=== PATIENT | male | born 1960 ===

== ENCOUNTER 2017-02-01 10:19 | Emergency (ER) | payer MEDICAID ==
[2017-02-01 10:32] VITALS: BMI 29.2
[2017-02-01] MEDS ORDERED: Oxycodone/Acetaminophen 5/325 mg Tab PO STA (10:32)
[2017-02-01] MEDS ORDERED: Oxycodone/Acetaminophen 5/325 mg Tab ONE (10:36)
--- NOTE | 2017-02-01 10:39 | C.PDOC ---
History Of Present Illness 56 y/o male on dialysis brought to ED by EMS with complaints of back pain for 3 days. Patient reports he was at dialysis today and developed pain prompting visit to ED. Patient states he was seen at [facility] for same symptoms and was given Tylenol with no relief. Patient denies fever, chills, n/v/d, urinary symptoms or any other complaints at this time. Time Seen by Provider: 02/01/17 10:22 Chief Complaint (Nursing): Back Pain History Per: Patient History/Exam Limitations: no limitations Onset/Duration Of Symptoms: Days Current Symptoms Are (Timing): Still Present Quality Of Discomfort: "Pain" Past Medical History Reviewed: Historical Data, Nursing Documentation, Vital Signs Vital Signs: Last Vital Signs Temp 97.7 F 02/01/17 13:45 Pulse 69 02/01/17 13:45 Resp 16 02/01/17 13:45 BP 156/77 H 02/01/17 13:45 Pulse Ox 100 02/01/17 13:48 - Medical History PMH: HTN, Hypercholesterolemia, End Stage Renal Disease, Chronic Kidney Disease Surgical History: No Surg Hx - [facility] Procedures CATARAC PHACOEMULS/ASPIR (07/23/13) INSERT LENS AT CATAR EXT (07/23/13) PERFORMANCE OF URINARY FILTRATION, MULTIPLE (09/07/15) Family History: States: No Known Family Hx - Social History Hx Alcohol Use: No Hx Substance Use: No Review Of Systems Constitutional: Negative for: Fever Gastrointestinal: Negative for: Nausea, Vomiting, Abdominal Pain, Diarrhea Genitourinary: Negative for: Dysuria, Hematuria Musculoskeletal: Positive for: Back Pain Skin: Negative for: Rash Neurological: Negative for: Weakness, Numbness Physical Exam - Physical Exam Appears: Non-toxic, No Acute Distress Skin: Normal Color, Warm, Dry, No Rash Head: Atraumatic, Normacephalic Eye(s): bilateral: Normal Inspection Oral Mucosa: Moist Neck: Normal ROM, No Midline Cervical Tenderness, Supple Chest: Symmetrical Gastrointestinal/Abdominal: Soft, No Tenderness, No Guarding, No Rebound Back: No CVA Tenderness, No Decreased ROM, Straight Leg Raising (Positive on both sides), Other (right paralumbar tenderness) Extremity: No Calf Tenderness, Capillary Refill (<2 seconds), Other (right upper arm fistula, 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 No suspicious lytic or blastic bony changes are identified although advanced degenerate disc changes identified at L4-5 and L5-S1 manifest by disc height loss, endplate sclerosis and osteophyte development. No spondylolisthesis appreciated. Posterior elements are remarkable for facet arthropathy diffusely. Prevertebral paraspinal soft tissues reflect iliac vascular calcifications. DISCS/SPINAL CANAL/NEURAL FORAMINA: L1-2: A disc osteophyte complex is appreciated as well as mild facet arthropathy resulting in a borderline central canal and borderline bilateral neural foraminal stenoses but no definite disc herniation grossly evident. L2-3: A generalized disc bulge results in mild central canal stenosis with contribution from facet joint arthropathy bilaterally. Mild bilateral neural foraminal stenosis is encountered. L3-4: An additional mild degenerative central canal stenosis results from generalized disc bulging and moderate facet joint arthropathy bilaterally. Mild bilateral neural foraminal stenosis also noted. L4-5: A moderate degenerate central canal stenosis results from prominent disc osteophyte complex and moderate facet arthropathy with [id number] bilateral degenerative neural foraminal stenoses also identified. L5-S1: A mild but irregular disc osteophyte complex is appreciate slightly greater the left and right sides combined with moderate to severe facet arthropathy encroaching the left greater the right lateral recess with moderate bilateral neural foraminal stenosis appreciated. PARASPINAL SOFT TISSUES: Unremarkable. OTHER FINDINGS: No gross disc acute herniation appreciate throughout the exam however MRI is more sensitive. IMPRESSION: 1. A mild L1 compression fractures of indeterminate age but is not fragmented. 2. Multilevel degenerative central canal and neural foraminal stenoses are identified seen worst at L4-5 where moderate central canal stenosis and [id number] bilateral neural foraminal stenoses are identified. 3. Stable but straightened lumbar curvature. Progress Note: Treated with morphine 4 mg IM. On re-evaluation abdomen soft, feeling better. ambulating with cane Reassessment Condition: Improved Medical Decision Making Medical Decision Making: Plan: * LS spine XRAY * Oxycodone Disposition Counseled Patient/Family Regarding: Studies Performed, Diagnosis, Need For Followup, Rx Given - Disposition Referrals: Jayesh Mariscal MD [Staff Provider] - Disposition: HOME/ ROUTINE Disposition Time: 14:00 Condition: STABLE Prescriptions: oxyCODONE/Acetaminophen [Percocet 5/325 mg Tab] 1 tab PO QID PRN #10 tab PRN Reason: Pain Instructions: Vertebral Compression Fracture (ED), Back Pain (ED) Forms: [employer] (Dive[employer]) Print Language: WELSH - POA Present On Arrival: None - Clinical Impression Clinical Impression: Lumbar sprain, Compression fracture of first lumbar vertebra - PA / FNP / Resident Statement MD/DO has reviewed & agrees with the documentation as recorded. - Scribe Statement The provider has reviewed the documentation as recorded by the Ross Hester All medical record entries made by the Anitaibabhishek were at my direction and personally dictated by me. I have reviewed the chart and agree that the record accurately reflects my personal performance of the history, physical exam, medical decision making, and the department course for this patient. I have also personally directed, reviewed, and agree with the discharge instructions and disposition.
[2017-02-01 10:42] VITALS: O2SAT 100
--- NOTE | 2017-02-01 11:09 | RAD ---
PROCEDURE: Radiographs of the Lumbar Spine. HISTORY: pain COMPARISON: No prior. FINDINGS: BONES: There straightening of lumbar curvature somewhat. A mild compression fractures anteriorly wedged L1 and is of indeterminate age. No additional fractures appreciated there is no spondylolisthesis. Advanced multilevel degenerate spondylosis appreciated at the mid inferior levels, but particularly at L4-5 and L5-S1. DISC SPACES: Marked disc height loss is seen at L5-S1, mild at L4-5. OTHER FINDINGS: Potential cholelithiasis at the right upper quadrant. Linear calcification is seen the plane of the right kidney in the frontal view. IMPRESSION: Advanced multilevel degenerate spondylosis is appreciate predominate at the mid and inferior lumbar levels with an anterior wedge compression fracture appearing mild at L1, of indeterminate age. Straightened lumbar curvature is noted. Additional findings as discussed above.
--- NOTE | 2017-02-01 13:19 | CT ---
PROCEDURE: CT Lumbar Spine without contrast HISTORY: pain COMPARISON: Lumbar spine radiographs 02/01/2017. TECHNIQUE: Axial computed tomography images were obtained of the lumbar spine without the use of intravenous contrast. Coronal and sagittal reformatted images were created and reviewed. Radiation dose: Total exam DLP = 726 mGy-cm. This CT exam was performed using one or more of the following dose reduction techniques: Automated exposure control, adjustment of the mA and/or kV according to patient size, and/or use of iterative reconstruction technique. FINDINGS: VERTEBRAE: There straightening of lumbar curvature however there is a mild anterior wedge compression fracture of L1, with no additional fracture appreciated throughout. No suspicious lytic or blastic bony changes are identified although advanced degenerate disc changes identified at L4-5 and L5-S1 manifest by disc height loss, endplate sclerosis and osteophyte development. No spondylolisthesis appreciated. Posterior elements are remarkable for facet arthropathy diffusely. Prevertebral paraspinal soft tissues reflect iliac vascular calcifications. DISCS/SPINAL CANAL/NEURAL FORAMINA: L1-2: A disc osteophyte complex is appreciated as well as mild facet arthropathy resulting in a borderline central canal and borderline bilateral neural foraminal stenoses but no definite disc herniation grossly evident. L2-3: A generalized disc bulge results in mild central canal stenosis with contribution from facet joint arthropathy bilaterally. Mild bilateral neural foraminal stenosis is encountered. L3-4: An additional mild degenerative central canal stenosis results from generalized disc bulging and moderate facet joint arthropathy bilaterally. Mild bilateral neural foraminal stenosis also noted. L4-5: A moderate degenerate central canal stenosis results from prominent disc osteophyte complex and moderate facet arthropathy with [id number] bilateral degenerative neural foraminal stenoses also identified. L5-S1: A mild but irregular disc osteophyte complex is appreciate slightly greater the left and right sides combined with moderate to severe facet arthropathy encroaching the left greater the right lateral recess with moderate bilateral neural foraminal stenosis appreciated. PARASPINAL SOFT TISSUES: Unremarkable. OTHER FINDINGS: No gross disc acute herniation appreciate throughout the exam however MRI is more sensitive. IMPRESSION: 1. A mild L1 compression fractures of indeterminate age but is not fragmented. 2. Multilevel degenerative central canal and neural foraminal stenoses are identified seen worst at L4-5 where moderate central canal stenosis and [id number] bilateral neural foraminal stenoses are identified. 3. Stable but straightened lumbar curvature.
[2017-02-01 13:46] VITALS: BP 156/77; PULSE 69; RESP 16; TEMP 97.7
== END 2017-02-01 15:00 | disposition home or self-care (01) ==
LOC: C.ER 10:19
DX: S33.5XXA Sprain of ligaments of lumbar spine, initial encounter (principal); M48.56XA Collapsed vertebra, not elsewhere classified, lumbar region, initial encounter for fracture; X58.XXXA Exposure to other specified factors, initial encounter